=== PATIENT | male | born 1950 | race Caucasian/White ===

== ENCOUNTER 2020-09-17 12:04 | Emergency (ER) | payer OTHER, MEDICARE ==
[~2020-09-17] VITALS: Ht 188 cm; Wt 72.7 kg
[2020-09-17 12:19] VITALS: BP 170/89
== END 2020-09-17 16:50 | disposition home or self-care (01) ==
LOC: ER 12:07
DX: R41.0 Disorientation, unspecified (principal); F17.200 Nicotine dependence, unspecified, uncomplicated; Z72.89 Other problems related to lifestyle
CPT/HCPCS: 99283; 99285